=== PATIENT | male | born 1980 | race Two or more races ===

== ENCOUNTER 2024-03-18 11:18 | Emergency (ER) | payer OTHER ==
[~2024-03-18] VITALS: Ht 175.3 cm; Wt 68.0 kg
[2024-03-18] MEDS ORDERED: TRAMADOL HCL 50 MG TABLET PO ONE (14:00)
== END 2024-03-18 14:31 | disposition home or self-care (01) ==
LOC: ER 11:20
DX: S93.504A Unspecified sprain of right lesser toe(s), initial encounter (principal); X58.XXXA Exposure to other specified factors, initial encounter; Y93.18 Activity, surfing, windsurfing and boogie boarding; Y92.832 Beach as the place of occurrence of the external cause; Y99.9 Unspecified external cause status; Z88.6 Allergy status to analgesic agent